=== PATIENT | female | born 1980 | race Caucasian/White ===

== ENCOUNTER 2020-12-02 14:35 | Emergency (ER) | payer MEDICAID, OTHER ==
[~2020-12-02] VITALS: Ht 175.3 cm; Wt 171.8 kg
[~2020-12-02 14:35] MED LIST: BACT800T OR; FURO20TA2 OR; PRAZ2CAP PO; TRAZ50TA2 PO; ZOLO50TA OR; [UNRECOGNIZED DRUG - CODE] XX
[2020-12-02] MEDS ORDERED: NS 1,000 ML IV ONE (16:15)
[2020-12-02] MEDS ORDERED: ONDANSETRON 4MG/2ML VIAL IV ONE (16:15)
[2020-12-02] MEDS ORDERED: KETOROLAC 60MG 2ML VIAL IM ONE (17:10)
[2020-12-02 17:29] LABS: BASO # 0.1 10^3/uL (0.0-0.2); BASO % 0.7 % (0.0-1.0); EOS # 0.2 10^3/uL (0.0-0.5); EOS % 3.3 % (0.0-3.0); HEMATOCRIT 44.1 % (36.0-47.0); HEMOGLOBIN 14.4 g/dl (12.0-15.5); LYMPH # 2.5 10^3/uL (1.5-5.0); LYMPH % 33.4 % (24.0-44.0); MEAN CORPUSCULAR HEMOGLOBIN 29.2 pg (27.0-33.0); MEAN CORPUSCULAR HGB CONC 32.7 g/dl (32.0-36.5); MEAN CORPUSCULAR VOLUME 89.5 fl (80.0-96.0); MONO # 0.6 10^3/uL (0.0-0.8); MONO % 8.2 % (2.0-8.0); PLATELET COUNT, AUTOMATED 280 10^3/uL (150-450); RED BLOOD COUNT 4.93 10^6/uL (4.00-5.40); WHITE BLOOD COUNT 7.3 10^3/uL (4.0-10.0)
[2020-12-02] MEDS ORDERED: KETOROLAC 30 MG/ML 1ML VIAL IV ONE (17:50)
[2020-12-02 17:51] LABS: ALBUMIN 3.8 GM/DL (3.2-5.2); BILIRUBIN,DIRECT 0.2 MG/DL (0.0-0.2); BILIRUBIN,TOTAL 0.4 MG/DL (0.2-1.0); TOTAL PROTEIN 7.4 GM/DL (6.4-8.2)
--- NOTE | 2020-12-02 18:57 | REP ---
INDICATION: known 6.7 cm fibroid, severe r pelvic pain. COMPARISON: None. TECHNIQUE: Transabdominal and transvaginal scanning were performed. FINDINGS: Uterus is enlarged with dimensions of 15.7 x 7.8 x 8.8 cm overall. The endometrium is distorted and immeasurable due to the presence of a complex solid 6.3 x 6.1 x 5.8 cm fibroid in the anterior fundal portion of the uterus. Patient gives a history of an IUD in place but no IUD could be seen on transabdominal or transvaginal scanning. Neither ovary could be visualized transabdominally or transvaginally. No free fluid or adnexal mass or cyst is apparent.. Scan quality is inhibited by patient body habitus and exam discomfort. Visualized bladder neri are smooth.. . IMPRESSION: Somewhat limited exam. 6.3 cm heterogeneous solid fibroid in the uterine fundus. Enlarged uterus. Neither ovary visualized. IUD not directly seen.. <Electronically signed by Tre Saxena > 12/02/20 [id number]
[2020-12-02 19:06] VITALS: BP 167/90
== END 2020-12-02 19:29 | disposition home or self-care (01) ==
LOC: M ED 14:35
DX: D25.9 Leiomyoma of uterus, unspecified (principal); R10.2 Pelvic and perineal pain; I10 Essential (primary) hypertension; Z87.42 Personal history of other diseases of the female genital tract; Z80.41 Family history of malignant neoplasm of ovary; Z97.5 Presence of (intrauterine) contraceptive device
CPT/HCPCS: 76830; 76856; 80047; 80076; 81001; 83605; 84702; 85025; 87086; 96361; 96374; 96375; 99284; J1885; J2405

== ENCOUNTER → 2021-07-24 | Outpatient (REF) | payer OTHER | LOC: M WUC 18:59 | PROVIDERS: ATTEND Physician Assistant Medical | DX: N39.0 Urinary tract infection, site not specified (principal) ==

== ENCOUNTER → 2021-12-01 | Outpatient (CLI) | payer OTHER | LOC: M WHC 11:57 | PROVIDERS: ATTEND Internal Medicine | DX: K42.9 Umbilical hernia without obstruction or gangrene (principal); L03.316 Cellulitis of umbilicus ==

== ENCOUNTER → 2022-08-23 | Outpatient (REF) | payer OTHER ==
[2022-08-23 14:05] LABS: BASO % 0.5 % (0.0-1.0); EOS # 0.2 10^3/uL (0.0-0.5); EOS % 2.8 % (0.0-3.0); HEMATOCRIT 41.9 % (36.0-47.0); HEMOGLOBIN 13.7 g/dl (12.0-15.5); LYMPH # 1.9 10^3/uL (1.5-5.0); LYMPH % 29.8 % (24.0-44.0); MEAN CORPUSCULAR HEMOGLOBIN 29.2 pg (27.0-33.0); MEAN CORPUSCULAR HGB CONC 32.7 g/dl (32.0-36.5); MEAN CORPUSCULAR VOLUME 89.3 fl (80.0-96.0); MONO # 0.5 10^3/uL (0.0-0.8); MONO % 8.4 % (2.0-8.0); NEUTROPHILS # 3.7 10^3/uL (1.5-8.5); NEUTROPHILS % 58.2 % (36.0-66.0); PLATELET COUNT, AUTOMATED 307 10^3/uL (150-450); RED BLOOD COUNT 4.69 10^6/uL (4.00-5.40); WHITE BLOOD COUNT 6.4 10^3/uL (4.0-10.0)
[2022-08-23 14:25] LABS: HEMOGLOBIN A1c 5.9 % (4.0-6.0)
[2022-08-23 14:35] LABS: ALBUMIN 3.3 G/DL (3.2-5.2); ALKALINE PHOSPHATASE 131 U/L (46-116); ALT/SGPT 17 U/L (7.0-40); AST/SGOT 21 U/L (<34); BILIRUBIN,TOTAL 0.3 MG/DL (0.3-1.2); BLOOD UREA NITROGEN 9 MG/DL (9-23); CALCIUM LEVEL 8.8 MG/DL (8.5-10.1); CARBON DIOXIDE LEVEL 25 MMOL/L (20-31); CHLORIDE LEVEL 102 MMOL/L (98-107); CHOLESTEROL LEVEL 173 MG/DL (<200); CHOLESTEROL RISK RATIO 3.55 (<5); CREATININE FOR GFR 0.72 MG/DL (0.55-1.30); FREE T4 1.23 NG/DL (0.89-1.76); GLOMERULAR FILTRATION RATE > 60.0 (>58); GLUCOSE, FASTING 113 MG/DL (60-100); HDL CHOLESTEROL 48.7 MG/DL (>40); LDL CHOLESTEROL 93.5 MG/DL (<100); NON-HDL-C 124 MG/DL; SODIUM LEVEL 138 MMOL/L (136-145); THYROID STIMULATING HORMONE 2.644 uIU/ML (0.55-4.78); TOTAL PROTEIN 7.1 G/DL (5.7-8.2); TRIGLYCERIDES LEVEL 154 MG/DL (<150)
[2022-08-23 15:10] LABS: HEPATITIS C VIRUS ABY INDEX 0.1 INDEX (<0.8)
== END ==
LOC: M LAB REF 13:20
PROVIDERS: ATTEND Nurse Practitioner Family
DX: Z13.228 Encounter for screening for other metabolic disorders (principal); Z11.59 Encounter for screening for other viral diseases

== ENCOUNTER → 2022-10-04 | Outpatient (REF) | payer OTHER | LOC: M LAB REF 11:35 | PROVIDERS: ATTEND Nurse Practitioner Family | DX: J02.9 Acute pharyngitis, unspecified (principal) ==

== ENCOUNTER → 2022-10-18 | Outpatient (REF) | payer OTHER | LOC: M LAB REF 12:43 | PROVIDERS: ATTEND Nurse Practitioner Family | DX: R39.9 Unspecified symptoms and signs involving the genitourinary system (principal) ==

== ENCOUNTER 2022-11-07 09:20 | Inpatient (IN) | payer OTHER ==
[~2022-11-07] VITALS: Ht 172.7 cm; Wt 160.3 kg
[2022-11-07] MEDS ORDERED: SERT50TA29 PO (09:51)
[2022-11-07] MEDS ORDERED: METO1TAB33 PO (09:51)
[2022-11-07] MEDS ORDERED: ONDA-83 (09:51)
[2022-11-07] MEDS ORDERED: AMPICILLIN SOD/SULBACTAM SOD 3 GM in D5W MINI-BAG PLUS 100 ML IV ONE (12:45)
[2022-11-07] MEDS ORDERED: KETOROLAC 30 MG/ML 1ML VIAL IV ONE (12:45)
[2022-11-07] MEDS ORDERED: NS 1,000 ML IV ONE (12:45)
[2022-11-07 13:22] LABS: BASO # 0.1 10^3/uL (0.0-0.2); BASO % 0.7 % (0.0-1.0); EOS # 0.1 10^3/uL (0.0-0.5); EOS % 1.2 % (0.0-3.0); HEMATOCRIT 39.8 % (36.0-47.0); HEMOGLOBIN 12.8 g/dl (12.0-15.5); LYMPH # 2.7 10^3/uL (1.5-5.0); LYMPH % 22.2 % (24.0-44.0); MEAN CORPUSCULAR HEMOGLOBIN 28.8 pg (27.0-33.0); MEAN CORPUSCULAR HGB CONC 32.2 g/dl (32.0-36.5); MEAN CORPUSCULAR VOLUME 89.4 fl (80.0-96.0); MONO % 8.1 % (2.0-8.0); NEUTROPHILS # 8.1 10^3/uL (1.5-8.5); NEUTROPHILS % 67.2 % (36.0-66.0); PLATELET COUNT, AUTOMATED 418 10^3/uL (150-450); RED BLOOD COUNT 4.45 10^6/uL (4.00-5.40); WHITE BLOOD COUNT 12.1 10^3/uL (4.0-10.0)
[2022-11-07 13:33] LABS: ERYTHROCYTE SEDIMENTATION RATE 107 mm/hr (0-20)
[2022-11-07 13:58] LABS: HCG, SERUM QUALITATIVE NEGATIVE (NEGATIVE)
[2022-11-07] MEDS ORDERED: ISOVUE-370 76% 100ML VIAL As Ordered ONE (14:05)
[2022-11-07 15:39] LABS: RSV AMPLIFICATION NEGATIVE (NEGATIVE)
[2022-11-07] MEDS ORDERED: ACETAMINOPHEN TAB 650MG DOSE (2X325MG) PO PRN (15:45)
[2022-11-07] MEDS ORDERED: HOME MED LIST COMPLETE! XX SCH (16:25)
[2022-11-07] MEDS: METOPROLOL SUCC (TopROL XL) 100MG *XL* TAB PO SCH (17:32)
[2022-11-07 18:52] VITALS: BP 153/93
[2022-11-07] MEDS: AMPICILLIN SOD/SULBACTAM SOD 3 GM in D5W MINI-BAG PLUS 100 ML IV SCH (18:55)
[2022-11-07] MEDS: ENOXAPARIN 60MG/0.6ML SYRINGE (J1650 PER 10MG) SC SCH (21:08)
[2022-11-07 22:00] VITALS: BP 145/92
[2022-11-08] MEDS: AMPICILLIN SOD/SULBACTAM SOD 3 GM in D5W MINI-BAG PLUS 100 ML IV SCH ×4 (02:31→18:19)
[2022-11-08 06:00] VITALS: BP 137/98
[2022-11-08 06:42] LABS: HEMATOCRIT 35.9 % (36.0-47.0); HEMOGLOBIN 11.2 g/dl (12.0-15.5); MEAN CORPUSCULAR HEMOGLOBIN 28.2 pg (27.0-33.0); MEAN CORPUSCULAR HGB CONC 31.2 g/dl (32.0-36.5); MEAN CORPUSCULAR VOLUME 90.4 fl (80.0-96.0); PLATELET COUNT, AUTOMATED 389 10^3/uL (150-450); RED BLOOD COUNT 3.97 10^6/uL (4.00-5.40)
[2022-11-08 07:00] LABS: ALBUMIN 2.4 G/DL (3.2-5.2); ALKALINE PHOSPHATASE 121 U/L (46-116); ALT/SGPT 11 U/L (7.0-40); AST/SGOT 8 U/L (<34); BILIRUBIN,TOTAL 0.2 MG/DL (0.3-1.2); BLOOD UREA NITROGEN 7 MG/DL (9-23); CALCIUM LEVEL 8.7 MG/DL (8.5-10.1); CARBON DIOXIDE LEVEL 28 MMOL/L (20-31); CHLORIDE LEVEL 105 MMOL/L (98-107); CREATININE FOR GFR 0.66 MG/DL (0.55-1.30); GLOMERULAR FILTRATION RATE > 60.0 (>58); GLUCOSE, FASTING 135 MG/DL (60-100); MAGNESIUM LEVEL 1.9 MG/DL (1.8-2.4); POTASSIUM SERUM 4.4 MMOL/L (3.5-5.1); SODIUM LEVEL 139 MMOL/L (136-145); TOTAL PROTEIN 6.5 G/DL (5.7-8.2)
[2022-11-08] MEDS ORDERED: ENOXAPARIN 40MG/0.4ML SYRINGE (J1650 PER 10MG) SC SCH (09:00)
[2022-11-08] MEDS ORDERED: SERTRALINE HCL 50 MG TAB PO SCH (09:00)
[2022-11-08] MEDS: ENOXAPARIN 60MG/0.6ML SYRINGE (J1650 PER 10MG) SC SCH ×2 (09:27→20:41)
[2022-11-08 09:28] VITALS: BP 110/71
[2022-11-08] MEDS: METOPROLOL SUCC (TopROL XL) 100MG *XL* TAB PO SCH (09:28)
[2022-11-08 14:00] VITALS: BP 135/86
[2022-11-08 20:00] VITALS: BP 140/96
[2022-11-09] MEDS: AMPICILLIN SOD/SULBACTAM SOD 3 GM in D5W MINI-BAG PLUS 100 ML IV SCH ×2 (01:34→06:08)
[2022-11-09 05:20] VITALS: BP 151/95
[2022-11-09 06:36] LABS: HEMATOCRIT 37.5 % (36.0-47.0); HEMOGLOBIN 11.8 g/dl (12.0-15.5); MEAN CORPUSCULAR HEMOGLOBIN 28.4 pg (27.0-33.0); MEAN CORPUSCULAR HGB CONC 31.5 g/dl (32.0-36.5); MEAN CORPUSCULAR VOLUME 90.1 fl (80.0-96.0); PLATELET COUNT, AUTOMATED 434 10^3/uL (150-450); RED BLOOD COUNT 4.16 10^6/uL (4.00-5.40); WHITE BLOOD COUNT 8.5 10^3/uL (4.0-10.0)
[2022-11-09 06:58] LABS: ERYTHROCYTE SEDIMENTATION RATE 115 mm/hr (0-20)
[2022-11-09 07:09] LABS: ALBUMIN 2.6 G/DL (3.2-5.2); ALKALINE PHOSPHATASE 120 U/L (46-116); ALT/SGPT 12 U/L (7.0-40); AST/SGOT 12 U/L (<34); BILIRUBIN,TOTAL 0.2 MG/DL (0.3-1.2); BLOOD UREA NITROGEN 9 MG/DL (9-23); CALCIUM LEVEL 8.6 MG/DL (8.5-10.1); CARBON DIOXIDE LEVEL 29 MMOL/L (20-31); CHLORIDE LEVEL 102 MMOL/L (98-107); CREATININE FOR GFR 0.72 MG/DL (0.55-1.30); GLOMERULAR FILTRATION RATE > 60.0 (>58); GLUCOSE, FASTING 131 MG/DL (60-100); POTASSIUM SERUM 4.1 MMOL/L (3.5-5.1); SODIUM LEVEL 140 MMOL/L (136-145); TOTAL PROTEIN 6.8 G/DL (5.7-8.2)
[2022-11-09 07:25] VITALS: BP 152/93
[2022-11-09] MEDS ORDERED: AMOX875T2 PO (07:28)
[2022-11-09] MEDS ORDERED: PROB250C PO (07:28)
[2022-11-09] MEDS ORDERED: ACET1TAB55 PO (07:29)
== END 2022-11-09 09:58 | disposition home or self-care (01) | DRG 113 ==
LOC: M ED 09:20 → M ED INP 15:44 → M MSPAV 18:45
PROVIDERS: ADMIT Family Medicine; ATTEND Internal Medicine
DX: J02.0 Streptococcal pharyngitis (principal); I10 Essential (primary) hypertension; F41.9 Anxiety disorder, unspecified; J39.2 Other diseases of pharynx; R59.0 Localized enlarged lymph nodes; Z79.899 Other long term (current) drug therapy

== ENCOUNTER → 2023-02-08 | Outpatient (CLI) | payer OTHER ==
[~2023-02-08] MED LIST changes: +ACET1TAB55 PO; +AMOX875T2 PO; +GASTROGRAFIN SOLUTION 30ML ONE; +ISOVUE-370 76% 100ML VIAL ONE; +METO1TAB33 PO; +ONDA-83; +PROB250C PO; +SERT50TA29 PO
== END ==
LOC: M PLAIMG 09:31
PROVIDERS: ATTEND Surgery
DX: K43.9 Ventral hernia without obstruction or gangrene (principal)

== ENCOUNTER → 2023-11-02 | Outpatient (REF) | payer OTHER ==
[~2023-11-02] MED LIST changes: -GASTROGRAFIN SOLUTION 30ML ONE; -ISOVUE-370 76% 100ML VIAL ONE
[2023-11-02 13:36] LABS: BASO % 0.4 % (0.0-1.0); EOS # 0.2 10^3/uL (0.0-0.5); EOS % 2.6 % (0.0-3.0); HEMATOCRIT 42.3 % (36.0-47.0); HEMOGLOBIN 14.1 g/dl (12.0-15.5); LYMPH # 2.3 10^3/uL (1.5-5.0); LYMPH % 30.9 % (24.0-44.0); MEAN CORPUSCULAR HEMOGLOBIN 29.7 pg (27.0-33.0); MEAN CORPUSCULAR HGB CONC 33.3 g/dl (32.0-36.5); MEAN CORPUSCULAR VOLUME 89.2 fl (80.0-96.0); MONO # 0.5 10^3/uL (0.0-0.8); MONO % 7.1 % (2.0-8.0); NEUTROPHILS # 4.4 10^3/uL (1.5-8.5); NEUTROPHILS % 58.7 % (36.0-66.0); PLATELET COUNT, AUTOMATED 266 10^3/uL (150-450); RED BLOOD COUNT 4.74 10^6/uL (4.00-5.40); WHITE BLOOD COUNT 7.4 10^3/uL (4.0-10.0)
[2023-11-02 13:39] LABS: ALBUMIN 3.3 G/DL (3.2-5.2); ALKALINE PHOSPHATASE 108 U/L (46-116); ALT/SGPT 13 U/L (7.0-40); AST/SGOT 10 U/L (<34); BILIRUBIN,TOTAL 0.3 MG/DL (0.3-1.2); BLOOD UREA NITROGEN 8 MG/DL (9-23); CALCIUM LEVEL 8.8 MG/DL (8.5-10.1); CARBON DIOXIDE LEVEL 27 MMOL/L (20-31); CHLORIDE LEVEL 103 MMOL/L (98-107); CHOLESTEROL LEVEL 187 MG/DL (<200); CHOLESTEROL RISK RATIO 3.54 (<5); GLOMERULAR FILTRATION RATE > 60.0 (>58); GLUCOSE, FASTING 112 MG/DL (60-100); HDL CHOLESTEROL 52.8 MG/DL (>40); LDL CHOLESTEROL 100.8 MG/DL (<100); MAGNESIUM LEVEL 1.6 MG/DL (1.8-2.4); NON-HDL-C 134.2 MG/DL; POTASSIUM SERUM 4.5 MMOL/L (3.5-5.1); SODIUM LEVEL 135 MMOL/L (136-145); THYROID STIMULATING HORMONE 2.785 uIU/ML (0.55-4.78); TOTAL PROTEIN 6.9 G/DL (5.7-8.2); TRIGLYCERIDES LEVEL 167 MG/DL (<150)
[2023-11-02 13:50] LABS: HEMOGLOBIN A1c 6.5 % (4.0-6.0)
== END ==
LOC: M LAB REF 12:28
PROVIDERS: ATTEND Nurse Practitioner Family
DX: E66.01 Morbid (severe) obesity due to excess calories (principal); E55.9 Vitamin D deficiency, unspecified

== ENCOUNTER → 2023-11-20 | Outpatient (REF) | payer OTHER | LOC: M LAB REF 12:28 | PROVIDERS: ATTEND Nurse Practitioner Family | DX: E83.42 Hypomagnesemia (principal) ==

== ENCOUNTER → 2024-06-19 | Outpatient (REF) | payer OTHER ==
[2024-06-19 12:21] LABS: BASO % 0.3 % (0.0-1.0); EOS # 0.2 10^3/uL (0.0-0.5); EOS % 2.2 % (0.0-3.0); HEMATOCRIT 40.8 % (36.0-47.0); HEMOGLOBIN 13.7 g/dl (12.0-15.5); LYMPH # 2.2 10^3/uL (1.5-5.0); LYMPH % 31.5 % (24.0-44.0); MEAN CORPUSCULAR HEMOGLOBIN 29.8 pg (27.0-33.0); MEAN CORPUSCULAR HGB CONC 33.6 g/dl (32.0-36.5); MEAN CORPUSCULAR VOLUME 88.9 fl (80.0-96.0); MONO # 0.5 10^3/uL (0.0-0.8); MONO % 7.1 % (2.0-8.0); NEUTROPHILS # 4.1 10^3/uL (1.5-8.5); NEUTROPHILS % 58.8 % (36.0-66.0); PLATELET COUNT, AUTOMATED 271 10^3/uL (150-450); RED BLOOD COUNT 4.59 10^6/uL (4.00-5.40)
[2024-06-19 12:25] LABS: ALBUMIN 3.2 G/DL (3.2-5.2); ALKALINE PHOSPHATASE 117 U/L (35-104); ALT/SGPT 15 U/L (7.0-40); AST/SGOT 11 U/L (<34); BILIRUBIN,TOTAL 0.3 MG/DL (0.3-1.2); BLOOD UREA NITROGEN 8 MG/DL (9-23); CALCIUM LEVEL 9.2 MG/DL (8.5-10.1); CARBON DIOXIDE LEVEL 28 MMOL/L (20-31); CHLORIDE LEVEL 107 MMOL/L (98-107); CHOLESTEROL LEVEL 148 MG/DL (<200); CHOLESTEROL RISK RATIO 3.93 (<5); CREATININE FOR GFR 0.74 MG/DL (0.55-1.30); GLOMERULAR FILTRATION RATE > 60.0 (>58); GLUCOSE, FASTING 123 MG/DL (60-100); HDL CHOLESTEROL 37.6 MG/DL (>40); LDL CHOLESTEROL 75.6 MG/DL (<100); MAGNESIUM LEVEL 1.6 MG/DL (1.8-2.4); NON-HDL-C 110.4 MG/DL; SODIUM LEVEL 139 MMOL/L (136-145); TOTAL PROTEIN 6.9 G/DL (5.7-8.2); TRIGLYCERIDES LEVEL 174 MG/DL (<150)
[2024-06-19 12:56] LABS: HEMOGLOBIN A1c 6.5 % (4.0-6.0)
== END ==
LOC: M LAB REF 12:01
PROVIDERS: ATTEND Nurse Practitioner Family
DX: E66.01 Morbid (severe) obesity due to excess calories (principal)

== ENCOUNTER → 2024-06-27 | Outpatient (REF) | payer OTHER | LOC: M LAB REF 11:51 | PROVIDERS: ATTEND Nurse Practitioner Family | DX: J02.9 Acute pharyngitis, unspecified (principal) ==

== ENCOUNTER → 2024-10-29 | Outpatient (REF) | payer OTHER ==
[2024-10-29 16:59] LABS: HEMOGLOBIN A1c 6.3 % (4.0-6.0)
[2024-10-29 17:14] LABS: ALBUMIN 3.2 G/DL (3.2-5.2); ALKALINE PHOSPHATASE 145 U/L (35-104); ALT/SGPT 26 U/L (7.0-40); AST/SGOT 20 U/L (<34); BILIRUBIN,TOTAL 0.2 MG/DL (0.3-1.2); BLOOD UREA NITROGEN 12 MG/DL (9-23); CALCIUM LEVEL 9.1 MG/DL (8.5-10.1); CARBON DIOXIDE LEVEL 26 MMOL/L (20-31); CHLORIDE LEVEL 105 MMOL/L (98-107); CREATININE FOR GFR 0.78 MG/DL (0.55-1.30); GLOMERULAR FILTRATION RATE > 60.0 (>58); GLUCOSE, FASTING 187 MG/DL (60-100); POTASSIUM SERUM 4.1 MMOL/L (3.5-5.1); SODIUM LEVEL 141 MMOL/L (136-145); TOTAL PROTEIN 6.8 G/DL (5.7-8.2)
== END ==
LOC: M LAB REF 12:06
PROVIDERS: ATTEND Nurse Practitioner Family
DX: R73.03 Prediabetes (principal)

== ENCOUNTER 2025-04-05 15:05 | Emergency (ER) | payer OTHER, SELFPAY ==
[~2025-04-05] VITALS: Ht 172.7 cm; Wt 146.1 kg
[2025-04-05 15:24] VITALS: TEMP 98.2
[2025-04-05 15:46] LABS: BASO # 0.0 10^3/uL (0.0-0.2); BASO % 0.4 % (0.0-1.0); EOS # 0.1 10^3/uL (0.0-0.5); EOS % 1.3 % (0.0-3.0); LYMPH # 2.0 10^3/uL (1.5-5.0); LYMPH % 24.4 % (24.0-44.0); MONO # 0.5 10^3/uL (0.0-0.8); MONO % 5.6 % (2.0-8.0); NEUTROPHILS # 5.6 10^3/uL (1.5-8.5); NEUTROPHILS % 68.1 % (36.0-66.0); PLATELET COUNT, AUTOMATED 337 10^3/uL (150-450)
[2025-04-05] MEDS: NS (Normal Saline) 0.9% 1,000 ML IV ONE ×2 (15:55→18:17)
[2025-04-05] MEDS: ACETAMINOPHEN *IV* 1,000 MG in IV 1 EA IV ONE (15:56)
[2025-04-05] MEDS ORDERED: ISOVUE-370 76% 100 ML VIAL As Ordered ONE (15:58)
[2025-04-05 16:11] LABS: ALT/SGPT 16 U/L (7.0-40); AST/SGOT 16 U/L (<34); CALCIUM LEVEL 8.4 MG/DL (8.5-10.1); CARBON DIOXIDE LEVEL 25 MMOL/L (20-31); CHLORIDE LEVEL 105 MMOL/L (98-107); CREATININE FOR GFR 0.76 MG/DL (0.55-1.30); GLOMERULAR FILTRATION RATE > 90.0 (>58); POTASSIUM SERUM 3.8 MMOL/L (3.5-5.1); SODIUM LEVEL 140 MMOL/L (136-145)
[2025-04-05] MEDS: LIDOCAINE 2% 5 ML JELLY UROJET TOP ONE (17:09)
[2025-04-05 17:28] LABS: KETONE, URINE AUTO RFX NEGATIVE (NEGATIVE); LEUKOCYTE ESTERASE UR AUTO RFX 1+ (NEGATIVE); NITRITE, URINE AUTO RFX POSITIVE (NEGATIVE); RBC, URINE AUTO RFX 3 /HPF (0-3); SQUAM EPITHELIAL CELL UR AURFX 7 /HPF (0-6); WBC, URINE AUTO RFX 18 /HPF (0-3)
[2025-04-05 19:15] VITALS: O2SAT 96
[2025-04-05 19:25] VITALS: BP 139/77
== END 2025-04-05 19:38 | disposition home or self-care (01) ==
LOC: EDBD 15:05 → M ED 15:05
DX: R10.9 Unspecified abdominal pain (principal); K43.9 Ventral hernia without obstruction or gangrene; R16.0 Hepatomegaly, not elsewhere classified; E11.9 Type 2 diabetes mellitus without complications; I10 Essential (primary) hypertension; F41.9 Anxiety disorder, unspecified; F10.10 Alcohol abuse, uncomplicated; Z79.1 Long term (current) use of non-steroidal anti-inflammatories (NSAID); Z79.899 Other long term (current) drug therapy
CPT/HCPCS: 71045; 74177; 76705; 80047; 80048; 80076; 81001; 82150; 83605; 83690; 85025; 87040; 87088; 87186; 87486; 87581; 87633; 87798; 93041; 96361; 96365; 99285; J0131; Q9967